=== PATIENT | female | born 1960 | race Caucasian/White ===

== ENCOUNTER → 2023-08-27 10:03 | Outpatient (REF) | payer BC, SELFPAY | LOC: WDC 10:03 | PROVIDERS: ATTENDING PHYSICIAN Obstetrics & Gynecology; FAMILY PHYSICIAN Family Medicine | DX: Z12.31 Encounter for screening mammogram for malignant neoplasm of breast (principal) | CPT/HCPCS: 77063; 77067 ==

== ENCOUNTER → 2023-08-29 07:57 | Outpatient (REF) | payer BC, SELFPAY | LOC: RAD 07:57 | PROVIDERS: ATTENDING PHYSICIAN Obstetrics & Gynecology; FAMILY PHYSICIAN Family Medicine | DX: Z13.820 Encounter for screening for osteoporosis (principal) | CPT/HCPCS: 77080 ==

== ENCOUNTER → 2024-09-01 09:43 | Outpatient (REF) | payer BC, SELFPAY | LOC: WDC 09:43 | PROVIDERS: ATTENDING PHYSICIAN Obstetrics & Gynecology; FAMILY PHYSICIAN Family Medicine | DX: Z12.31 Encounter for screening mammogram for malignant neoplasm of breast (principal) | CPT/HCPCS: 77063; 77067 ==

== ENCOUNTER → 2024-09-13 10:04 | Outpatient (REF) | payer BC, SELFPAY | LOC: WDC 10:04 | PROVIDERS: ATTENDING PHYSICIAN Obstetrics & Gynecology; FAMILY PHYSICIAN Family Medicine | DX: R92.8 Other abnormal and inconclusive findings on diagnostic imaging of breast (principal) | CPT/HCPCS: 76642 ==

== ENCOUNTER → 2024-09-28 06:40 | Outpatient (REF) | payer BC, SELFPAY ==
--- NOTE | 2024-10-01 09:15 | OID.BR.INTR ---
OID Breast Navigator - Initial
- -
Did not meet patient at time of biopsy. Will follow up per protocol.
== END ==
LOC: WDC 06:40
PROVIDERS: ATTENDING PHYSICIAN Obstetrics & Gynecology; FAMILY PHYSICIAN Family Medicine
DX: R92.8 Other abnormal and inconclusive findings on diagnostic imaging of breast (principal); N64.59 Other signs and symptoms in breast
CPT/HCPCS: 19081; 76098; 88305; A4648

== ENCOUNTER → 2024-10-16 13:59 | Outpatient (REF) | payer BC, SELFPAY | LOC: MRI 3T 13:59 | PROVIDERS: ATTENDING PHYSICIAN Surgery; FAMILY PHYSICIAN Family Medicine | DX: C50.411 Malignant neoplasm of upper-outer quadrant of right female breast (principal); Z17.0 Estrogen receptor positive status [ER+] | CPT/HCPCS: 77049; A9585 ==

== ENCOUNTER → 2024-10-18 09:37 | Outpatient (REF) | payer BC, SELFPAY | LOC: WDC 09:37 | PROVIDERS: ATTENDING PHYSICIAN Surgery; FAMILY PHYSICIAN Family Medicine | DX: C50.411 Malignant neoplasm of upper-outer quadrant of right female breast (principal) | CPT/HCPCS: 19281; 38792; A4648; A9541 ==

== ENCOUNTER 2024-10-19 06:14 | Day surgery (SDC) | payer BC, SELFPAY ==
[2024-10-12 08:53] VITALS: BMI 41.1
[2024-10-12 10:53] LABS: Hematocrit 40.5 % (37.0-47.0); Hemoglobin 13.6 g/dL (12.0-16.0); Mean Corp Hgb Conc. 33.6 g/dL (33.0-37.0); Mean Corpuscular Volume 85.6 fL (81.0-99.0); Platelet Count 228 10^3/uL (130-400); Red Cell Dist. Width 13.0 % (11.5-14.5)
[2024-10-12 11:23] LABS: ALT (SGPT) 31 U/L (0-35); AST (SGOT) 22 U/L (14-36); Albumin 4.4 g/dl (3.5-5.0); Alkaline Phosphatase 78 U/L (38-126); Blood Urea Nitrogen 19 mg/dl (7-17); Calcium 10.1 mg/dl (8.4-10.2); Carbon Dioxide 27 mmol/L (22-30); Chloride 107 mmol/L (98-107); Estimated Creatinine Clearance 74 ml/min; Glucose 103 mg/dl (70-99); Potassium 4.3 mmol/L (3.5-5.1); Sodium 139 mmol/L (135-145); Total Protein 6.9 g/dl (6.3-8.2); eGFR > 60.00
[2024-10-12 12:01] LABS: Prealbumin (Transthyretin) 24.4 mg/dl (17.6-36.0)
[2024-10-12 12:13] LABS: Vitamin D, 25-OH*** 30.5 ng/mL (30-80)
[2024-10-19 07:55] VITALS: BP 163/87
[2024-10-19] MEDS: NORMOSOL-R/PLASMALYTE-A 1000 IV (08:10)
[2024-10-19 08:21] VITALS: BMI 41.1
[2024-10-19] MEDS: LOVENOX 40 MG SC (08:22)
[2024-10-19] MEDS: TYLENOL 1000 MG PO (08:22)
[2024-10-19 10:18] VITALS: BP 100/89
--- NOTE | 2024-10-19 10:20 | W.IMMPOSTOP ---
Surgical Immed Post Op Note
-
Primary Surgeon: Denny
Assisting Surgeon: None
Pre-op Diagnosis: Right breast carcinoma
Post-op Diagnosis: Same
Procedure Performed: Right localized lumpectomy, sentinel lymph node mapping and biopsy, oncoplastic mastoplasty
Anesthesia Type: TIVA
Specimen / Cultures: Right lumpectomy, sentinel nodes
Estimated Blood Loss: 8cc
Complications: none
Operative Findings: Clip and reflector in specimen
--- NOTE | 2024-10-19 10:22 | OR.RPT ---
Operative Report
Operative Report
Procedure: 10/19/2024
Surgeon: Denny
Preoperative diagnosis: Right breast carcinoma
Postoperative diagnosis: Right breast carcinoma
Procedure right localized lumpectomy, sentinel lymph node mapping and biopsy, closure with oncoplastic mastoplasty
The patient is a 64-year-old female who had image detected right breast carcinoma presents for breast conservation surgery. On the day prior to the procedure she presented to the [facility] where a Alea tobacco stripping machine operator reflector was placed and
technetium radiotracer was injected into the breast parenchyma. On the day of surgery, the patient presented to the same-day surgical services unit where she was prepped. She verified site and procedures and DVT and antibiotic prophylaxis were
provided. She was taken to the operating room and in the supine position local was sedation was administered. Right breast and axilla were prepped and draped in usual sterile fashion and an appropriate timeout was performed by all team members.
All tissues were anesthetized with 1% lidocaine plain. Attention was first turned to the axilla where a curvilinear incision was made inferior to the hairline overlying the area of highest external gamma count. Dissection was carried through
clavipectoral fascia into subtle no pockets were encountered and excised. Feeding vessels to the nodes were controlled with 3-0 silk tie. Hemostasis was verified. Marcaine 0.5% plain was instilled and the wound was closed using simple interrupted
3-0 plain on deep intermediate and subcutaneous tissue and skin was closed with a running subcuticular 4 Monocryl.
The lumpectomy was performed by making a curvilinear incision overlying the area of highest Alea signal skin flaps were elevated and a wide lumpectomy was performed with the cautery. Time out of body was noted and the specimen was oriented for the
pathologist. Specimen radiography confirmed the presence of clip reflector and mass within it. Additional margins were harvested for permanent analysis from the posterior, medial, superior, lateral, inferior, and anterior dimensions. These were
oriented as well. Hemostasis was verified here and there was a resulting defect of 7 x 7 cm therefore in an oncoplastic fashion separate parenchymal incision was made to advance the tissue flap to close the defect after hemoclips were placed in the
resection cavity. All tissues were instilled with Marcaine 0.5% plain. The oncoplastic plane was entered and skin was elevated circumferentially. The wound was closed in the same manner as the axillary incision. Surgical glue and sterile
compressive dressings were applied. All sponge needle and instrument counts were correct the patient was transferred to the recovery room in stable condition
([id number])
[2024-10-19 10:30] VITALS: BP 114/68
[2024-10-19 10:45] VITALS: BP 119/65
[2024-10-19] MEDS: ROXICODONE 5 MG PO (10:58)
[2024-10-19 11:00] VITALS: BP 121/67
[2024-10-19 11:15] VITALS: BP 131/71
== END 2024-10-19 11:32 | disposition home or self-care (01) ==
LOC: SDS 06:14
PROVIDERS: ATTENDING PHYSICIAN Surgery; FAMILY PHYSICIAN Family Medicine
DX: C50.911 Malignant neoplasm of unspecified site of right female breast (principal); C77.9 Secondary and unspecified malignant neoplasm of lymph node, unspecified
CPT/HCPCS: 19301; 38525; 36415; 76098; 80053; 82306; 84134; 85027; 88305; 88307; 88342; 93005; A4648; L8000

== ENCOUNTER → 2024-12-07 13:07 | Outpatient (REF) | payer BC, SELFPAY | LOC: HWRAD 13:07 | PROVIDERS: ATTENDING PHYSICIAN Internal Medicine Hematology & Oncology; FAMILY PHYSICIAN Family Medicine; REFERRING PHYSICIAN Surgery | DX: C50.511 Malignant neoplasm of lower-outer quadrant of right female breast (principal); Z80.3 Family history of malignant neoplasm of breast | CPT/HCPCS: 71250 ==

== ENCOUNTER → 2024-12-11 08:00 | Outpatient (REF) | payer BC, SELFPAY ==
[2024-12-11 08:51] LABS: Hematocrit 43.0 % (37.0-47.0); Hemoglobin 14.0 g/dL (12.0-16.0); Mean Corp Hgb Conc. 32.6 g/dL (33.0-37.0); Mean Corpuscular Volume 88.5 fL (81.0-99.0); Nucleated Red Blood Cells % 0 %; Platelet Count 257 10^3/uL (130-400); Red Cell Dist. Width 13.4 % (11.5-14.5)
[2024-12-11 09:23] LABS: ALT (SGPT) 28 U/L (0-35); AST (SGOT) 20 U/L (14-36); Albumin 4.6 g/dl (3.5-5.0); Alkaline Phosphatase 86 U/L (38-126); Blood Urea Nitrogen 23 mg/dl (7-17); Calcium 10.3 mg/dl (8.4-10.2); Carbon Dioxide 28 mmol/L (22-30); Chloride 103 mmol/L (98-107); Glucose 121 mg/dl (70-99); Potassium 3.8 mmol/L (3.5-5.1); Sodium 139 mmol/L (135-145); Total Protein 7.1 g/dl (6.3-8.2); eGFR > 60.00
== END ==
LOC: REG 08:00
PROVIDERS: ATTENDING PHYSICIAN Internal Medicine Hematology & Oncology; FAMILY PHYSICIAN Family Medicine
DX: C50.511 Malignant neoplasm of lower-outer quadrant of right female breast (principal); Z80.3 Family history of malignant neoplasm of breast
CPT/HCPCS: 36415; 80053; 85025

== ENCOUNTER → 2025-01-01 09:36 | Outpatient (REF) | payer BC, SELFPAY ==
[2025-01-01 10:22] LABS: Hematocrit 39.1 % (37.0-47.0); Hemoglobin 13.1 g/dL (12.0-16.0); Mean Corp Hgb Conc. 33.5 g/dL (33.0-37.0); Mean Corpuscular Volume 87.1 fL (81.0-99.0); Nucleated Red Blood Cells % 0 %; Platelet Count 311 10^3/uL (130-400); Red Cell Dist. Width 14.0 % (11.5-14.5)
[2025-01-01 10:49] LABS: ALT (SGPT) 25 U/L (0-35); AST (SGOT) 20 U/L (14-36); Albumin 4.2 g/dl (3.5-5.0); Alkaline Phosphatase 76 U/L (38-126); Blood Urea Nitrogen 16 mg/dl (7-17); Calcium 10.2 mg/dl (8.4-10.2); Carbon Dioxide 27 mmol/L (22-30); Chloride 104 mmol/L (98-107); Glucose 101 mg/dl (70-99); Potassium 4.4 mmol/L (3.5-5.1); Sodium 137 mmol/L (135-145); Total Protein 6.7 g/dl (6.3-8.2); eGFR > 60.00
== END ==
LOC: REG 09:36
PROVIDERS: ATTENDING PHYSICIAN Internal Medicine Hematology & Oncology
DX: C50.511 Malignant neoplasm of lower-outer quadrant of right female breast (principal); Z80.3 Family history of malignant neoplasm of breast
CPT/HCPCS: 36415; 80053; 85025

== ENCOUNTER → 2025-01-22 08:04 | Outpatient (REF) | payer BC, SELFPAY ==
[2025-01-22 09:01] LABS: Hematocrit 34.7 % (37.0-47.0); Hemoglobin 11.5 g/dL (12.0-16.0); Mean Corp Hgb Conc. 33.1 g/dL (33.0-37.0); Mean Corpuscular Volume 85.9 fL (81.0-99.0); Nucleated Red Blood Cells % 0 %; Platelet Count 293 10^3/uL (130-400); Red Cell Dist. Width 15.6 % (11.5-14.5)
[2025-01-22 15:12] LABS: ALT (SGPT) 24 U/L (0-35); AST (SGOT) 20 U/L (14-36); Albumin 4.0 g/dl (3.5-5.0); Alkaline Phosphatase 94 U/L (38-126); Blood Urea Nitrogen 14 mg/dl (7-17); Calcium 10.2 mg/dl (8.4-10.2); Carbon Dioxide 22 mmol/L (22-30); Chloride 107 mmol/L (98-107); Glucose 117 mg/dl (70-99); Potassium 3.9 mmol/L (3.5-5.1); Sodium 135 mmol/L (135-145); Total Protein 6.7 g/dl (6.3-8.2); eGFR > 60.00
== END ==
LOC: REG 08:04
PROVIDERS: ATTENDING PHYSICIAN Internal Medicine Hematology & Oncology; FAMILY PHYSICIAN Family Medicine
DX: C50.511 Malignant neoplasm of lower-outer quadrant of right female breast (principal); Z80.3 Family history of malignant neoplasm of breast
CPT/HCPCS: 36415; 80053; 85025

== ENCOUNTER → 2025-02-13 07:49 | Outpatient (REF) | payer BC, SELFPAY ==
[2025-02-13 08:34] LABS: Hematocrit 34.1 % (37.0-47.0); Hemoglobin 11.6 g/dL (12.0-16.0); Mean Corp Hgb Conc. 34.0 g/dL (33.0-37.0); Mean Corpuscular Volume 87.2 fL (81.0-99.0); Nucleated Red Blood Cells % 0 %; Platelet Count 318 10^3/uL (130-400); Red Cell Dist. Width 17.2 % (11.5-14.5)
[2025-02-13 10:29] LABS: ALT (SGPT) 24 U/L (0-35); AST (SGOT) 26 U/L (14-36); Albumin 4.0 g/dl (3.5-5.0); Alkaline Phosphatase 99 U/L (38-126); Blood Urea Nitrogen 10 mg/dl (7-17); Calcium 10.5 mg/dl (8.4-10.2); Carbon Dioxide 22 mmol/L (22-30); Chloride 104 mmol/L (98-107); Glucose 142 mg/dl (70-99); Potassium 4.0 mmol/L (3.5-5.1); Sodium 134 mmol/L (135-145); Total Protein 6.6 g/dl (6.3-8.2); eGFR > 60.00
== END ==
LOC: REG 07:49
PROVIDERS: ATTENDING PHYSICIAN Internal Medicine
DX: C50.511 Malignant neoplasm of lower-outer quadrant of right female breast (principal); Z80.3 Family history of malignant neoplasm of breast
CPT/HCPCS: 36415; 80053; 85025